=== PATIENT | female | born 1970 | race Caucasian/White ===

== ENCOUNTER → 2016-11-23 | Outpatient (CLI) | payer BC ==
--- NOTE | 2016-11-26 08:47 | MM ---
Reason for exam: screening (asymptomatic). Last mammogram was performed 1 year ago. History: Patient is nulliparous. Family history of breast cancer in paternal aunt and breast cancer in maternal aunt. Benign excisional biopsy of the right breast, February 12, 2001. Took hormonal contraceptives for 4 years. Taking progesterone for 2 years. Physical Findings: A clinical breast exam by your physician is recommended on an annual basis and results should be correlated with mammographic findings. MG Screening Mammo w CAD Bilateral CC and MLO view(s) were taken. XCCL view(s) were taken of the left breast. Prior study comparison: November 15, 2015, bilateral MG screening mammo w CAD. November 11, 2014, bilateral MG screening mammo w CAD. May 25, 2014, right breast MG diagnostic mammo RT w CAD. There are scattered fibroglandular densities. Finding: There are a few typically benign round, scattered calcifications in both breasts. There is no discrete abnormality. ASSESSMENT: Benign, BI-RAD 2 RECOMMENDATION: Routine screening mammogram of both breasts in 1 year.
== END | disposition home or self-care (01) ==
LOC: RADMAMWWP 09:22
PROVIDERS: ATTEND Obstetrics & Gynecology
DX: Z12.31 Encounter for screening mammogram for malignant neoplasm of breast (principal)

== ENCOUNTER → 2017-12-17 | Outpatient (CLI) | payer BC ==
--- NOTE | 2017-12-18 13:49 | MM ---
Reason for exam: screening (asymptomatic). Last mammogram was performed 1 year and 1 month ago. History: Patient is nulliparous. Family history of breast cancer in paternal aunt and breast cancer in maternal aunt. Benign excisional biopsy of the right breast, February 12, 2001. Took hormonal contraceptives for 4 years. Taking progesterone for 2 years. Physical Findings: A clinical breast exam by your physician is recommended on an annual basis and results should be correlated with mammographic findings. MG Screening Mammo w CAD Bilateral CC and MLO view(s) were taken. Prior study comparison: November 23, 2016, bilateral MG screening mammo w CAD. November 15, 2015, bilateral MG screening mammo w CAD. There are scattered fibroglandular densities. No significant changes when compared with prior studies. ASSESSMENT: Benign, BI-RAD 2 RECOMMENDATION: Routine screening mammogram of both breasts in 1 year.
== END | disposition home or self-care (01) ==
LOC: RADMAMWWP 10:22
PROVIDERS: ATTEND Obstetrics & Gynecology
DX: Z12.31 Encounter for screening mammogram for malignant neoplasm of breast (principal)
CPT/HCPCS: 77067

== ENCOUNTER → 2018-12-18 | Outpatient (CLI) | payer BC ==
--- NOTE | 2018-12-19 08:48 | MM ---
Reason for exam: screening (asymptomatic). Last mammogram was performed 1 year ago. History: Patient is nulliparous. Family history of breast cancer in paternal aunt and breast cancer in maternal aunt. Benign excisional biopsy of the right breast, February 12, 2001. Took hormonal contraceptives for 4 years. Taking progesterone for 2 years. Physical Findings: A clinical breast exam by your physician is recommended on an annual basis and results should be correlated with mammographic findings. MG Screening Mammo w CAD Bilateral CC and MLO view(s) were taken. Prior study comparison: December 17, 2017, bilateral MG screening mammo w CAD. November 23, 2016, bilateral MG screening mammo w CAD. There are scattered fibroglandular densities. There is no discrete abnormality. No significant changes when compared with prior studies. ASSESSMENT: Negative, BI-RAD 1 RECOMMENDATION: Routine screening mammogram of both breasts in 1 year.
== END | disposition home or self-care (01) ==
LOC: RADMAMWWP 13:20
PROVIDERS: ATTEND Obstetrics & Gynecology
DX: Z12.31 Encounter for screening mammogram for malignant neoplasm of breast (principal)
CPT/HCPCS: 77067

== ENCOUNTER → 2020-01-29 | Outpatient (CLI) | payer BC ==
--- NOTE | 2020-02-02 08:24 | MM ---
Reason for exam: screening (asymptomatic). Last mammogram was performed 1 year and 1 month ago. History: Patient is nulliparous. Family history of breast cancer in paternal aunt and breast cancer in maternal aunt. Benign excisional biopsy of the right breast, February 12, 2001. Took hormonal contraceptives for 4 years. Taking progesterone for 2 years. Physical Findings: A clinical breast exam by your physician is recommended on an annual basis and results should be correlated with mammographic findings. MG Screening Mammo w CAD Bilateral CC and MLO view(s) were taken. Prior study comparison: December 18, 2018, bilateral MG screening mammo w CAD. December 17, 2017, bilateral MG screening mammo w CAD. There are scattered fibroglandular densities. There is no discrete abnormality. No significant changes when compared with prior studies. ASSESSMENT: Negative, BI-RAD 1 RECOMMENDATION: Routine screening mammogram of both breasts in 1 year.
== END | disposition home or self-care (01) ==
LOC: RADMAMWWP 10:29
PROVIDERS: ATTEND Obstetrics & Gynecology
DX: Z12.31 Encounter for screening mammogram for malignant neoplasm of breast (principal)
CPT/HCPCS: 77067

== ENCOUNTER → 2021-01-30 | Outpatient (CLI) | payer BC ==
--- NOTE | 2021-02-02 10:50 | MM ---
Reason for exam: screening (asymptomatic). Last mammogram was performed 1 year ago. History: Patient is nulliparous. Family history of breast cancer in paternal aunt, breast cancer in grandmother, and breast cancer in maternal aunt. Benign excisional biopsy of the right breast, February 12, 2001. Took hormonal contraceptives for 4 years. Took progesterone for 2 years. Physical Findings: A clinical breast exam by your physician is recommended on an annual basis and results should be correlated with mammographic findings. MG Screening Mammo w CAD Bilateral CC and MLO view(s) were taken. Prior study comparison: January 29, 2020, bilateral MG screening mammo w CAD. December 18, 2018, bilateral MG screening mammo w CAD. There are scattered fibroglandular densities. There are benign appearing round calcifications bilaterally. There is no discrete abnormality. ASSESSMENT: Benign, BI-RAD 2 RECOMMENDATION: Routine screening mammogram of both breasts in 1 year.
== END | disposition home or self-care (01) ==
LOC: RADMAMWWP 12:33
PROVIDERS: ATTEND Obstetrics & Gynecology
DX: Z12.31 Encounter for screening mammogram for malignant neoplasm of breast (principal); Z80.3 Family history of malignant neoplasm of breast
CPT/HCPCS: 77067

== ENCOUNTER 2021-12-07 06:35 | Day surgery (SDC) | payer BC ==
[2021-12-05 11:47] VITALS: BMI 39.1
[~2021-12-07 06:35] MED LIST: LACTATED RINGERS 1,000 ML IV SCH
[2021-12-07 07:09] VITALS: RESP 16; TEMP 97.6
[2021-12-07 07:24] LABS: Glucose,Whole Blood 100 mg/dL (75-99)
[2021-12-07] MEDS ORDERED: PROPOFOL 10 MG/ML 20 ML VIAL IV ONE (07:57)
[2021-12-07] MEDS ORDERED: MIDAZOLAM 2 MG/2 ML VIAL ONE (07:57)
[2021-12-07] MEDS ORDERED: fentaNYL (PF) 50 MCG/ML 2 ML AMP ONE (07:57)
--- NOTE | 2021-12-07 08:16 | P.GSHP ---
History of Present Illness H&P Date: 12/07/21 Chief Complaint: Screening colonoscopy This 51-year-old female presents today for screening colonoscopy. Patient denies any significant GI complaints. Past Medical History Past Medical History: Diabetes Mellitus, Hyperlipidemia, Thyroid Disorder Additional Past Medical History / Comment(s): Hx frequent UTI's. Hemorrhoids. History of Any Multi-Drug Resistant Organisms: None Reported Past Surgical History: Breast Surgery, Cholecystectomy, Orthopedic Surgery Additional Past Surgical History / Comment(s): Colonoscopy, right breast b iopsy/milk duct removed, arthroscopic left knee surgery X2. Past Anesthesia/Blood Transfusion Reactions: No Reported Reaction Past Psychological History: No Psychological Hx Reported Smoking Status: Never smoker Past Alcohol Use History: None Reported Past Drug Use History: None Reported - Past Family History Mother Family Medical History: No Reported History Medications and Allergies Home Medications Medication Instructions Recorded Confirmed Type Atorvastatin [Lipitor] 10 mg PO HS 12/05/21 12/07/21 History Cetirizine HCl [Zyrtec] 5 mg PO DAILY 12/05/21 12/07/21 History Cholecalciferol [Vitamin D3 (25 50 mcg PO DAILY 12/05/21 12/05/21 History Mcg = 1000 Iu)] Cranberry (Unknown Dose) 1 tab PO DAILY 12/05/21 12/05/21 History Empagliflozin [Jardiance] 10 mg PO DAILY 12/05/21 12/07/21 History Fiber + B Vitamins 1 tab PO DAILY 12/05/21 12/05/21 History Levothyroxine Sodium 150 mcg PO 0500 12/05/21 12/07/21 History Multivit with Calcium,Iron,Min 1 each PO DAILY 12/05/21 12/05/21 History [Women's Multivitamin] Potassium Gluconate [Potassium 99 mg PO DAILY 12/05/21 12/05/21 History Gluconate ER] metFORMIN HCL ER [Glucophage XR] 1,000 mg PO BID 12/05/21 12/07/21 History Allergies Allergy/AdvReac Type Severity Reaction Status Date / Time No Known Allergies Allergy Verified 12/07/21 07:20 Surgical - Exam Vital Signs Temp Pulse Resp BP Pulse Ox 97.6 F 107 H 16 155/93 96 12/07/21 07:04 12/07/21 07:04 12/07/21 07:04 12/07/21 07:04 12/07/21 07:04 - General well developed, well nourished, no distress - Eyes PERRL - ENT normal pinna - Neck no masses - Respiratory normal expansion - Cardiovascular Rhythm: regular - Abdomen Abdomen: soft, non tender Results - Labs Abnormal Lab Results - Last 24 Hours (Table) 12/07/21 Range/Units 07:19 POC Glucose (mg/dL) 100 H (75-99) mg/dL Assessment and Plan Assessment: We'll perform screening colonoscopy
--- NOTE | 2021-12-07 08:18 | P.OP ---
Date of Procedure: 12/07/21 Preoperative Diagnosis: Screening colonoscopy Postoperative Diagnosis: Sigmoid colon polyp, Diverticulosis Procedure(s) Performed: Colonoscopy Anesthesia: MAC Surgeon: Lenny Chaney Pathology: other (Sigmoid colon polyp) Condition: stable Disposition: PACU Description of Procedure: The patient's placed on the endoscopy table in the lateral position. She received IV sedation. The digital rectal exam was performed which revealed a few internal/external hemorrhoids. The flexible colonoscope was then placed patient anus passed throughout the entire colon. The ileocecal valve was visualized. The cecum, ascending and transverse colon appeared normal. In the descending and; there is mild diverticulosis. In the sigmoid colon there was a small hyperplastic polyps is removed with the cold forcep. Scope was brought back the rectum and this appeared normal. Scope withdrawn for patient.
[2021-12-07 08:31] VITALS: BP 109/76; PULSE 81
== END 2021-12-07 08:46 | disposition home or self-care (01) ==
LOC: ORWHC2ENDO 06:35
PROVIDERS: ATTEND Surgery
DX: Z12.11 Encounter for screening for malignant neoplasm of colon (principal); K63.5 Polyp of colon; E11.9 Type 2 diabetes mellitus without complications; E07.9 Disorder of thyroid, unspecified; E78.5 Hyperlipidemia, unspecified; Z87.19 Personal history of other diseases of the digestive system; Z87.440 Personal history of urinary (tract) infections; Z90.49 Acquired absence of other specified parts of digestive tract
CPT/HCPCS: 45380; 88305; J2250; J3010; J2704

== ENCOUNTER → 2022-02-01 | Outpatient (CLI) | payer BC ==
--- NOTE | 2022-02-02 07:52 | MM ---
Reason for Exam: Screening (asymptomatic). Last screening mammogram was performed 12 month(s) ago. Patient History: Menarche at age 17. Patient has no children. Patient used Progesterone for 2 years. Patient used Hormonal Contraceptives for 4 years. 02/12/2001, Benign Excisional Biopsy on the right side. Maternal grandmother had breast cancer. Paternal aunt had breast cancer. Maternal aunt had breast cancer. Last menstrual period: 05/29/2019 Risk Values: Diana 5 year model risk: 1.2%. NCI Lifetime model risk: 10.6%. Prior Study Comparison: 12/18/2018 Bilateral Screening Mammogram, [facility]. 01/29/2020 Bilateral Screening Mammogram, [facility]. 01/30/2021 Bilateral Screening Mammogram, [facility]. Tissue Density: There are scattered fibroglandular densities. Findings: Analyzed By CAD. There is occasional scattered small benign-appearing round calcifications bilaterally redemonstrated. New group of indistinct calcifications in the central breast middle depth over 3 mm segment warrants further workup outer aspect. Overall Assessment: Incomplete: need additional imaging evaluation, BI-RAD 0 Management: Special View Mammogram of the right breast. Return for additional spot magnification views and true lateral view right breast. Electronically signed and approved by: Errol Cormier M.D.
== END | disposition home or self-care (01) ==
LOC: RADMAMWWP 08:15
PROVIDERS: ATTEND Obstetrics & Gynecology
DX: Z12.31 Encounter for screening mammogram for malignant neoplasm of breast (principal); R92.1 Mammographic calcification found on diagnostic imaging of breast; Z80.3 Family history of malignant neoplasm of breast
CPT/HCPCS: 77067

== ENCOUNTER → 2022-02-08 | Outpatient (CLI) | payer BC ==
--- NOTE | 2022-02-08 14:47 | MM ---
Reason for Exam: Additional evaluation requested from abnormal screening. Last screening mammogram was performed less than 1 month ago. Patient History: Menarche at age 17. Patient has no children. Patient used Progesterone for 2 years. Patient used Hormonal Contraceptives for 4 years. 02/12/2001, Benign Excisional Biopsy on the right side. Maternal grandmother had breast cancer, age 50. Paternal aunt had breast cancer, age 50. Maternal aunt had breast cancer, age 50. Risk Values: Diana 5 year model risk: 1.2%. NCI Lifetime model risk: 10.6%. Prior Study Comparison: 11/15/2015 Bilateral Screening Mammogram, [facility]. 01/29/2020 Bilateral Screening Mammogram, [facility]. 01/30/2021 Bilateral Screening Mammogram, [facility]. 02/01/2022 Bilateral MG screening mammo w CAD, [facility]. Tissue Density: Right: The breast tissue is heterogeneously dense. This may lower the sensitivity of mammography. Findings: Analyzed By CAD. 2 clustered groups of calcifications are seen on the right cc view and motion is noted on the left ML view. Six-month follow-up mammography is advised. Overall Assessment: Probably benign, BI-RAD 3 Management: Diagnostic Mammogram of the right breast in 6 months. A clinical breast exam by your physician is recommended on an annual basis and results should be correlated with mammographic findings. This exam should not preclude additional follow-up of suspicious palpable abnormalities. Results were given to the patient verbally at the time of exam. Electronically signed and approved by: Nathan Shanks M.D. Radiologis
== END | disposition home or self-care (01) ==
LOC: RADMAMWWP 10:00
PROVIDERS: ATTEND Obstetrics & Gynecology
DX: R92.8 Other abnormal and inconclusive findings on diagnostic imaging of breast (principal); Z80.3 Family history of malignant neoplasm of breast
CPT/HCPCS: 77061; 77065

== ENCOUNTER → 2022-08-13 | Outpatient (CLI) | payer BC ==
--- NOTE | 2022-08-13 10:24 | MM ---
Reason for Exam: Follow-up at short interval from prior study. Last screening mammogram was performed 6 month(s) ago. Patient History: Menarche at age 17. Patient has no children. Postmenopausal. Patient used Progesterone for 2 years. Patient used Hormonal Contraceptives for 4 years. 02/12/2001, Benign Excisional Biopsy on the right side. Maternal grandmother had breast cancer, age 50. Paternal aunt had breast cancer, age 50. Maternal aunt had breast cancer, age 50. Risk Values: Diana 5 year model risk: 1.2%. NCI Lifetime model risk: 10.4%. Prior Study Comparison: 01/30/2021 Bilateral Screening Mammogram, [facility]. 02/01/2022 Bilateral MG screening mammo w CAD, [facility]. 02/08/2022 Right MG 3D work up w/cad RT, [facility]. Tissue Density: Right: There are scattered fibroglandular densities. Findings: Analyzed By CAD. Stable group of punctate calcifications seen on the right breast in the upper outer quadrant at middle depth. No new suspicious mass. Overall Assessment: Probably benign, BI-RAD 3 Management: Diagnostic Mammogram of both breasts in 6 months. A clinical breast exam by your physician is recommended on an annual basis and results should be correlated with mammographic findings. This exam should not preclude additional follow-up of suspicious palpable abnormalities. Results were given to the patient verbally at the time of exam. Electronically signed and approved by: Anthony Foreman D.O.
== END | disposition home or self-care (01) ==
LOC: RADMAMWWP 09:57
PROVIDERS: ATTEND Obstetrics & Gynecology
DX: R92.8 Other abnormal and inconclusive findings on diagnostic imaging of breast (principal); Z78.0 Asymptomatic menopausal state; Z80.3 Family history of malignant neoplasm of breast
CPT/HCPCS: 77061; 77065

== ENCOUNTER → 2023-02-11 | Outpatient (CLI) | payer BC ==
--- NOTE | 2023-02-11 09:54 | MM ---
Reason for Exam: Follow-up at short interval from prior study. Last screening mammogram was performed 12 month(s) ago. Patient History: Menarche at age 17. Patient has no children. Postmenopausal. Patient used Progesterone for 2 years. Patient used Hormonal Contraceptives for 4 years. 02/12/2001, Benign Excisional Biopsy on the right side. Maternal grandmother had breast cancer, age 50. Paternal aunt had breast cancer, age 50. Maternal aunt had breast cancer, age 50. Risk Values: Diana 5 year model risk: 1.2%. NCI Lifetime model risk: 10.4%. Prior Study Comparison: 11/23/2016 Bilateral Screening Mammogram, [facility]. 12/17/2017 Bilateral Screening Mammogram, [facility]. 12/18/2018 Bilateral Screening Mammogram, [facility]. 01/29/2020 Bilateral Screening Mammogram, [facility]. 01/30/2021 Bilateral Screening Mammogram, [facility]. 02/01/2022 Bilateral MG screening mammo w CAD, [facility]. 02/08/2022 Right MG 3D work up w/cad RT, [facility]. 08/13/2022 Right MG 3D diag mammo w/cad RT, [facility]. Tissue Density: The breast tissue is almost entirely fat. Findings: Analyzed By CAD. No new suspicious masses, calcifications or distortions. Overall Assessment: Negative, BI-RAD 1 Management: Screening Mammogram of both breasts in 1 year. Results were given to the patient verbally at the time of exam. Patient should continue monthly self-breast exams. A clinical breast exam by your physician is recommended on an annual basis. This exam should not preclude additional follow-up of suspicious palpable abnormalities. Note on Diana scores and lifetime risk: 1. A Diana score greater than 3% is considered moderate risk. If this is the case, consider specialist referral to assess eligibility for a risk reducing agent. 2. If overall lifetime risk for the development of breast cancer is 20% or higher, the patient may qualify for future screening with alternating mammogram and breast MRI. Electronically signed and approved by: Nikunj Norman DO
== END | disposition home or self-care (01) ==
LOC: RADMAMWWP 09:23
PROVIDERS: ATTEND Obstetrics & Gynecology
DX: R92.8 Other abnormal and inconclusive findings on diagnostic imaging of breast (principal); Z78.0 Asymptomatic menopausal state; Z80.3 Family history of malignant neoplasm of breast
CPT/HCPCS: 77062; 77066

== ENCOUNTER 2023-12-27 14:04 | Inpatient (IN) | payer BC ==
--- NOTE | 2023-12-27 14:21 | ED ---
General Adult HPI - General Chief complaint: Extremity Injury, Lower Stated complaint: Fall Time Seen by Provider: 12/27/23 14:07 Source: patient, EMS Mode of arrival: EMS Limitations: no limitations - History of Present Illness Initial comments: Dictation was produced using [employer]vector dictation software. please excuse any grammatical, word or spelling errors. Chief Complaint: 53-year-old female with past medical history of diabetes, dyslipidemia and thyroid disease presents to the emergency department for falls and knee pain History of Present Illness: Patient 53-year-old female she has no significant comorbidities. States that over the last several days she has had weakness that only seems to be apparent in the morning. States that this morning she fell twice landed on her knees. Denies any injury to her head or anywhere else in her body. She complains of bruises to her bilateral knees. Denies any cardiac issues. She states that she has not syncopized. She states that knees feel weak in the morning causing her to fall. The ROS documented in this emergency department record has been reviewed and confirmed by me. Those systems with pertinent positive or negative responses have been documented in the HPI. All other systems are other negative and/or noncontributory. - Related Data Home Medications Medication Instructions Recorded Confirmed Atorvastatin [Lipitor] 10 mg PO HS 12/05/21 12/27/23 Empagliflozin [Jardiance] 10 mg PO W/BRKFST 12/05/21 12/27/23 Levothyroxine Sodium 150 mcg PO DAILY@0500 12/05/21 12/27/23 metFORMIN HCL ER [Glucophage XR] 1,000 mg PO BID 12/05/21 12/27/23 Allergies Allergy/AdvReac Type Severity Reaction Status Date / Time No Known Allergies Allergy Verified 12/27/23 14:54 Review of Systems ROS Statement: Those systems with pertinent positive or pertinent negative responses have been documented in the HPI. ROS Other: All systems not noted in ROS Statement are negative. Past Medical History Past Medical History: Diabetes Mellitus, Hyperlipidemia, Thyroid Disorder Additional Past Medical History / Comment(s): Hx frequent UTI's. Hemorrhoids. History of Any Multi-Drug Resistant Organisms: None Reported Past Surgical History: Breast Surgery, Cholecystectomy, Orthopedic Surgery Additional Past Surgical History / Comment(s): Colonoscopy, right breast biopsy/milk duct removed, arthroscopic left knee surgery X2. Past Anesthesia/Blood Transfusion Reactions: No Reported Reaction Past Psychological History: No Psychological Hx Reported Smoking Status: Never smoker Past Alcohol Use History: None Reported Past Drug Use History: None Reported - Past Family History Mother Family Medical History: No Reported History General Exam - General Exam Comments Initial Comments: PHYSICAL EXAM: General Impression: Alert and oriented x3, not in acute distress HEENT: Normocephalic atraumatic, extra-ocular movements intact, pupils equal and reactive to light bilaterally, mucous membranes moist. Cardiovascular: Heart regular rate and rhythm Chest: Able to complete full sentences, no retractions, no tachypnea Abdomen: abdomen soft, non-tender, non-distended, no organomegaly Musculoskeletal: Pulses present and equal in all extremities, no peripheral edema, bruises to the bilateral knees, passive and active range of motion intact lower extremity joints Motor: no focal deficits noted Neurological: CN II-XII grossly intact, no focal motor or sensory deficits noted Skin: Intact with no visualized rashes Psych: Normal affect and mood Limitations: no limitations Course Vital Signs 12/27/23 14:14 Temperature 97.9 F Pulse Rate 105 H Respiratory 18 Rate Blood Pressure 158/100 O2 Sat by Pulse 98 Oximetry EKG Findings - EKG Comments: EKG Findings:: My EKG interpretation: Ventricular rate 90, sinus rhythm,. 176, QRS 114, QTc 293. No OK prolongation, no QTC prolongation, no ST or T-wave changes noted. No EKG for comparison. Isolated ST elevation in V2. No other abnormalities noted. Overall this EKG is nonspecific. Medical Decision Making - Medical Decision Making Was pt. sent in by a medical professional or institution (, PA, BATH TESTER, urgent care, hospital, or snf...) When possible be specific @ -No Did you speak to anyone other than the patient for history (EMS, parent, family, police, friend...)? What history was obtained from this source @ -No Did you review nursing and triage notes (agree or disagree)? Why? @ -I reviewed and agree with nursing and triage notes Were old charts reviewed (outside hosp., previous admission, EMS record, old EKG, old radiological studies, urgent care reports/EKG's, snf records)? Report findings @ -No old charts were reviewed Differential Diagnosis (chest pain, altered mental status, abdominal pain women, abdominal pain men, vaginal bleeding, musculoskeletal, weakness, fever, dyspnea, syncope, headache, dizziness, GI bleed, back pain, seizure, CVA, palpatations, mental health)? @ -Differential Musculoskeletal: Muscular strain, contusion, ligament sprain, fracture, arthritis, septic arthritis, bursitis, cellulitis, muscle spasm, nerve compression, DVT, arterial occlusion, herpes zoster, electrolyte abnormality, tumor.... This is not meant to be in all inclusive list EKG interpreted by me (3pts min.). @ -None done X-rays interpreted by me (1pt min.). @ -Bilateral knee x-ray shows no acute processes CT interpreted by me (1pt min.). @ -None done U/S interpreted by me (1pt. min.). @ -None done What testing was considered but not performed or refused? (CT, X-rays, U/S, labs)? Why? @ -None What meds were considered but not given or refused? Why? @ -None Did you discuss the management of the patient with other professionals (professionals i.e. , PA, BATH TESTER, lab, RT, psych nurse, psych social worker, internet marketing assistant, teacher, chief information officer, home health care case manager)? Give summary @ -Case discussed with hospitalist for admission Was smoking cessation discussed for >3mins.? @ -No Was critical care preformed (if so, how long)? @ -No Were there social determinants of health that impacted care today? How? (Homelessness, low income, unemployed, alcoholism, drug addiction, transportation, low edu. Level, literacy, decrease access to med. care, custodial, rehab)? @ -No Was there de-escalation of care discussed even if they declined (Discuss DNR or withdrawal of care, Hospice)? DNR status @ -No What co-morbidities impacted this encounter? (DM, HTN, Smoking, COPD, CAD, Cancer, CVA, ARF, Chemo, Hep., AIDS, mental health diagnosis, sleep apnea, morbid obesity)? @ -None Was patient admitted / discharged? Hospital course, mention meds given and route, prescriptions, significant lab abnormalities, going to OR and other pertinent info. @ -53-year-old female presents emergency department for frequent falls. Vital signs upon arrival are within acceptable limits she has bruises on her knees. Otherwise patient has no acute distress. Laboratory evaluation obtained. Incidental finding of hypercalcemia of 13.9. Patient given IV fluids. Patient will be admitted for further care. Undiagnosed new problem with uncertain prognosis? @ -No Drug Therapy requiring intensive monitoring for toxicity (Heparin, Nitro, Insulin, Cardizem)? @ -No Were any procedures done? @ -No Diagnosis/symptom? Acute, or Chronic, or Acute on Chronic? Uncomplicated (without systemic symptoms) or Complicated (systemic symptoms)? @ -Hypercalcemia, no obvious source Side effects of treatment? @ -No Exacerbation, Progression, or Severe Exacerbation? @ -No Poses a threat to life or bodily function? How? (Chest pain, [place], ND, pneumonia, PE, COPD, DKA, ARF, appy, cholecystitis, CVA, Diverticulitis, Homicidal, Suicidal, threat to staff... and all critical care pts) @ -yes - Lab Data Result diagrams: 12/27/23 14:40 12/27/23 14:40 Lab Results 12/27/23 12/27/23 Range/Units 14:40 14:40 WBC 9.3 (3.8-10.6) k/uL RBC 4.15 (3.80-5.40) m/uL Hgb 11.0 L (11.4-16.0) gm/dL Hct 33.5 L (34.0-46.0) % MCV 80.8 (80.0-100.0) fL MCH 26.4 (25.0-35.0) pg MCHC 32.7 (31.0-37.0) g/dL RDW 16.4 H (11.5-15.5) % Plt Count 239 (150-450) k/uL MPV 8.2 Neutrophils % 68 % Lymphocytes % 19 % Monocytes % 6 % Eosinophils % 4 % Basophils % 1 % Neutrophils # 6.4 (1.3-7.7) k/uL Lymphocytes # 1.8 (1.0-4.8) k/uL Monocytes # 0.6 (0-1.0) k/uL Eosinophils # 0.4 (0-0.7) k/uL Basophils # 0.1 (0-0.2) k/uL Anisocytosis Slight Sodium 140 (137-145) mmol/L Potassium 3.0 L (3.5-5.1) mmol/L Chloride 103 (98-107) mmol/L Carbon Dioxide 26 (22-30) mmol/L Anion Gap 11 mmol/L BUN 12 (7-17) mg/dL Creatinine 1.16 H (0.52-1.04) mg/dL Est GFR (CKD-EPI)AfAm 63 (>60 ml/min/1.73 sqM) Est GFR (CKD-EPI)NonAf 55 (>60 ml/min/1.73 sqM) Glucose 112 H (74-99) mg/dL Calcium 13.9 H* (8.4-10.2) mg/dL Disposition Clinical Impression: Hypercalcemia Disposition: ADMITTED IP TO THIS HOSP Condition: Fair Referrals: Dwaine Barraza DO [Primary Care Provider] - 1-2 days Decision Time: 17:50
[2023-12-27 14:44] LABS: Anisocytosis Slight; Basophils # (A) 0.1 k/uL (0-0.2); Basophils % (A) 1 %; Eosinophils # (A) 0.4 k/uL (0-0.7); Eosinophils % (A) 4 %; HCT 33.5 % (34.0-46.0); Lymphocytes # (A) 1.8 k/uL (1.0-4.8); Lymphocytes % (A) 19 %; MCH 26.4 pg (25.0-35.0); MCHC 32.7 g/dL (31.0-37.0); MCV 80.8 fL (80.0-100.0); Mean Platelet Volume 8.2; Monocytes # (A) 0.6 k/uL (0-1.0); Monocytes % (A) 6 %; Neutrophils # (A) 6.4 k/uL (1.3-7.7); Neutrophils % (A) 68 %; Platelet Count 239 k/uL (150-450); RBC 4.15 m/uL (3.80-5.40); RDW 16.4 % (11.5-15.5); WBC 9.3 k/uL (3.8-10.6)
[2023-12-27 14:59] LABS: African American GFR (CKD) 63 (>60 ml/min/1.73 sqM); Anion Gap 11 mmol/L; Blood Urea Nitrogen 12 mg/dL (7-17); Carbon Dioxide 26 mmol/L (22-30); Chloride 103 mmol/L (98-107); Glucose 112 mg/dL (74-99); Non-African American GFR(CKD) 55 (>60 ml/min/1.73 sqM); Sodium 140 mmol/L (137-145)
[2023-12-27 15:07] LABS: Calcium 13.9 mg/dL (8.4-10.2)
--- NOTE | 2023-12-27 16:15 | XR ---
EXAMINATION TYPE: XR knee complete bilateral DATE OF EXAM: 12/27/2023 COMPARISON: None HISTORY: Pain TECHNIQUE: Bilateral knees 3 views each FINDINGS: Right knee: Medial and lateral femoral condylar spurring and medial tibial plateau spurring is presen t. There is mild narrowing of the joint spaces. Some calcification may be within the anterior joint s pace. No joint effusion is evident. No acute fractures identified. Left knee: Mild medial and lateral femoral condylar and tibial plateau spurs are present. There is na rrowing of the medial lateral compartment joint spaces. No joint effusion is evident. Large superior patellar spur is present. Posterior joint space calcification may be present. Acute fractures identif ied. IMPRESSION: 1. No acute osseous abnormalities bilateral knees. 2. Narrowing of the medial and lateral compartment joint spaces patible with moderate degenerative c hanges
[2023-12-27] MEDS: SODIUM CHLORIDE 0.9% 1,000 ML IV STA (16:41)
[2023-12-27] MEDS ORDERED: NALOXONE 0.4 MG/ML 1 ML VIAL IV PRN (17:47)
[2023-12-27] MEDS: SODIUM CHLORIDE 0.9% 1,000 ML IV SCH (18:44)
[2023-12-27] MEDS ORDERED: DEXTROSE 50% SYRINGE 50 ML IVP PRN ×2 (21:55)
[2023-12-27 22:14] LABS: Glucose,Whole Blood 113 mg/dL (70-110)
[2023-12-27] MEDS: hydrALAZINE HCL 20 MG/ML 1 ML VIAL IVP PRN (22:57)
[2023-12-28] MEDS: LEVOTHYROXINE 75 MCG TAB PO SCH (05:24)
[2023-12-28 07:18] LABS: Glucose,Whole Blood 81 mg/dL (70-110)
[2023-12-28] MEDS: INSULIN ASPART (NovoLOG) 100 UNIT/ML VIAL SQ SCH (07:44)
[2023-12-28] MEDS: ATORVASTATIN 10 MG TAB PO SCH ×2 (09:19→19:38)
[2023-12-28] MEDS ORDERED: Potassium Replacement Protocol 1 EACH MISC MISCELLANE PRN (10:02)
--- NOTE | 2023-12-28 10:12 | P.HPIM ---
History of Present Illness 53-year-old pleasant female came in with complaints of fall and mechanical fall and bruises on the knee. Patient is found to have osteoarthritis of the knee. Patient is admitted for workup for hypercalcemia patient has elevated calcium up to 13. Patient is up-to-date with her breast cancer screening and patient had a colonoscopy in 2013 and supposed to get colonoscopy next year. Patient did have an unintentional weight loss of 5 pounds in 1 and half months. Patient denies any fever chills nausea vomiting abdominal patient patient has minimally elevated creatinine of 1.2. Patient denies any diarrhea patient is not on any m edications that can cause hypercalcemia. REVIEW OF SYSTEMS: CONSTITUTIONAL: No fever, no malaise, no fatigue. HEENT: No recent visual problems or hearing problems. Denied any sore throat. CARDIOVASCULAR: No chest pain, orthopnea, PND, no palpitations, no syncope. PULMONARY: No shortness of breath, no cough, no hemoptysis. GASTROINTESTINAL: No diarrhea, no nausea, no vomiting, no abdominal pain. NEUROLOGICAL: No headaches, no weakness, no numbness. HEMATOLOGICAL: Denies any bleeding or petechiae. GENITOURINARY: Denies any burning micturition, frequency, or urgency. MUSCULOSKELETAL/RHEUMATOLOGICAL: Denies any joint pain, swelling, or any muscle pain. ENDOCRINE: Denies any polyuria or polydipsia. The rest of the 14-point review of systems is negative. PHYSICAL EXAMINATION: GENERAL: The patient is alert and oriented x3, not in any acute distress. Well developed, well nourished. HEENT: Pupils are round and equally reacting to light. EOMI. No scleral icterus. No conjunctival pallor. Normocephalic, atraumatic. No pharyngeal erythema. No thyromegaly. CARDIOVASCULAR: S1 and S2 present. No murmurs, rubs, or gallops. PULMONARY: Chest is clear to auscultation, no wheezing or crackles. ABDOMEN: Soft, nontender, nondistended, normoactive bowel sounds. No palpable organomegaly. MUSCULOSKELETAL: No joint swelling or deformity. EXTREMITIES: No cyanosis, clubbing, or pedal edema. NEUROLOGICAL: Gross neurological examination did not reveal any focal deficits. SKIN: Bruises on bilateral knees Assessment and plan -Hypercalcemia: Will order PTH, serum calcium levels. Nephrology will be consulted continue with IV fluids will increase the fluid rate to 100 cc/h monitor electrolytes. -Fall generalized weakness physical therapy Occupational Therapy evaluation there is no evidence of fractures -Type 2 diabetes mellitus -Hypertension -Hyperlipidemia Above-mentioned chronic medical problems patient will be started on appropriate home medications DVT prophylaxis: Subcutaneous heparin Past Medical History Past Medical History: Diabetes Mellitus, Hyperlipidemia, Thyroid Disorder Additional Past Medical History / Comment(s): Hx frequent UTI's. Hemorrhoids. History of Any Multi-Drug Resistant Organisms: None Reported Past Surgical History: Breast Surgery, Cholecystectomy, Orthopedic Surgery Additional Past Surgical History / Comment(s): Colonoscopy, right breast biopsy/milk duct removed, arthroscopic left knee surgery X2. Past Anesthesia/Blood Transfusion Reactions: No Reported Reaction Past Psychological History: No Psychological Hx Reported Smoking Status: Never smoker Past Alcohol Use History: None Reported Past Drug Use History: None Reported - Past Family History Mother Family Medical History: No Reported History Medications and Allergies Home Medications Medication Instructions Recorded Confirmed Type Atorvastatin [Lipitor] 10 mg PO HS 12/05/21 12/27/23 History Empagliflozin [Jardiance] 10 mg PO W/BRKFST 12/05/21 12/27/23 History Levothyroxine Sodium 150 mcg PO DAILY@0500 12/05/21 12/27/23 History metFORMIN HCL ER [Glucophage XR] 1,000 mg PO BID 12/05/21 12/27/23 History Allergies Allergy/AdvReac Type Severity Reaction Status Date / Time No Known Allergies Allergy Verified 12/27/23 14:54 Physical Exam Vitals: Vital Signs Temp Pulse Pulse Resp BP BP Pulse Ox 12/28/23 07:34 98.9 F 93 19 147/84 98 12/28/23 00:38 166/96 12/28/23 00:19 98.7 F 104 H 16 172/94 97 12/27/23 23:35 96 18 144/92 99 12/27/23 23:18 99 18 164/82 95 12/27/23 22:58 170/93 12/27/23 21:52 101 H 18 170/96 97 12/27/23 20:56 100 18 192/107 96 12/27/23 20:00 100 20 184/105 97 12/27/23 14:14 97.9 F 105 H 18 158/100 98 Intake and Output 12/27/23 12/28/23 12/28/23 22:59 06:59 14:59 Intake Total 1100 Balance 1100 Intake: Intake, IV Titration 600 Amount Sodium Chloride 0.9% 1, 600 000 ml @ 75 mls/hr IV . [id number] Rx#:[id number] Oral 500 Other: Voiding Method Diaper External Catheter # Voids 2 2 # Bowel Movements 1 Weight 100.244 kg Results CBC & Chem 7: 12/27/23 14:40 12/27/23 14:40 Labs: Abnormal Lab Results - Last 24 Hours (Table) 12/27/23 12/27/23 12/27/23 Range/Units 14:40 14:40 22:13 Hgb 11.0 L (11.4-16.0) gm/dL Hct 33.5 L (34.0-46.0) % RDW 16.4 H (11.5-15.5) % Potassium 3.0 L (3.5-5.1) mmol/L Creatinine 1.16 H (0.52-1.04) mg/dL Glucose 112 H (74-99) mg/dL POC Glucose (mg/dL) 113 H (70-110) mg/dL Calcium 13.9 H* (8.4-10.2) mg/dL Thrombosis Risk Factor Assmnt - Choose All That Apply Any of the Below Risk Factors Present?: Yes Each Factor Represents 1 point: Age 41-60 years, Obesity (BMI >25) Other Risk Factors: No Other congenital or acquired thrombophilia - If yes, enter type in comment: No Thrombosis Risk Factor Assessment Total Risk Factor Score: 2 Thrombosis Risk Factor Assessment Level: Low Risk
[2023-12-28 10:53] LABS: African American GFR (CKD) 62 (>60 ml/min/1.73 sqM); Anion Gap 9 mmol/L; Blood Urea Nitrogen 11 mg/dL (7-17); Calcium 12.3 mg/dL (8.4-10.2); Carbon Dioxide 27 mmol/L (22-30); Chloride 105 mmol/L (98-107); Glucose 134 mg/dL (74-99); Magnesium 1.1 mg/dL (1.6-2.3); Non-African American GFR(CKD) 54 (>60 ml/min/1.73 sqM); Sodium 141 mmol/L (137-145)
[2023-12-28 10:58] LABS: Potassium 2.4 mmol/L (3.5-5.1)
[2023-12-28] MEDS: ENOXAPARIN 40 MG/0.4 ML SYRINGE SQ SCH (11:04)
[2023-12-28] MEDS: POTASSIUM CHLORIDE ER 20 MEQ TAB.ER PO SCH ×2 (11:04→19:39)
[2023-12-28] MEDS: ACETAMINOPHEN TAB 325 MG TAB PO PRN (11:04)
[2023-12-28 11:57] LABS: Glucose,Whole Blood 93 mg/dL (70-110)
--- NOTE | 2023-12-28 13:14 | P.NPCON ---
History of Present Illness - History of Present Illness patient is a 53-year-old female who was admitted to the hospital after a fall. Patient states that she tripped and fell on both knees with subsequent bruising. In the ER patient was noted to have an elevated calcium of 13.9. no prior history of hypercalcemia. Patient denies any significant use of Tums or calcium supplements. She does take vitamin D supplement daily. Serum creatinine at 1.1 mg/dL. no history of sarcoidosis. Review of Systems as per HPI Past Medical History Past Medical History: Diabetes Mellitus, Hyperlipidemia, Thyroid Disorder Additional Past Medical History / Comment(s): Hx frequent UTI's. Hemorrhoids. History of Any Multi-Drug Resistant Organisms: None Reported Past Surgical History: Breast Surgery, Cholecystectomy, Orthopedic Surgery Additional Past Surgical History / Comment(s): Colonoscopy, right breast biopsy/milk duct removed, arthroscopic left knee surgery X2. Past Anesthesia/Blood Transfusion Reactions: No Reported Reaction Past Psychological History: No Psychological Hx Reported Smoking Status: Never smoker Past Alcohol Use History: None Reported Past Drug Use History: None Reported - Past Family History Mother Family Medical History: No Reported History Medications and Allergies Home Medications Medication Instructions Recorded Confirmed Type Atorvastatin [Lipitor] 10 mg PO HS 12/05/21 12/27/23 History Empagliflozin [Jardiance] 10 mg PO W/BRKFST 12/05/21 12/27/23 History Levothyroxine Sodium 150 mcg PO DAILY@0500 12/05/21 12/27/23 History metFORMIN HCL ER [Glucophage XR] 1,000 mg PO BID 12/05/21 12/27/23 History Allergies Allergy/AdvReac Type Severity Reaction Status Date / Time No Known Allergies Allergy Verified 12/27/23 14:54 Physical Exam Vitals: Vital Signs Temp Pulse Pulse Resp BP BP Pulse Ox 12/28/23 07:34 98.9 F 93 19 147/84 98 12/28/23 00:38 166/96 12/28/23 00:19 98.7 F 104 H 16 172/94 97 12/27/23 23:35 96 18 144/92 99 12/27/23 23:18 99 18 164/82 95 12/27/23 22:58 170/93 12/27/23 21:52 101 H 18 170/96 97 12/27/23 20:56 100 18 192/107 96 12/27/23 20:00 100 20 184/105 97 12/27/23 14:14 97.9 F 105 H 18 158/100 98 Intake and Output 12/27/23 12/28/23 12/28/23 22:59 06:59 14:59 Intake Total 1100 Balance 1100 Intake: Intake, IV Titration 600 Amount Sodium Chloride 0.9% 1, 600 000 ml @ 75 mls/hr IV . [id number] [facility] Rx#:[id number] Oral 500 Other: Voiding Method Diaper External Catheter # Voids 2 2 # Bowel Movements 1 Weight 100.244 kg patient is awake, comfortable, no acute distress. Examination of the heart S1 and S2 Examination of the lungs bilateral breath sounds are heard Abdomen is soft nontender obese Examination of lower extremities shows bruising both knees, no edema noted BE[employer] RUNNER exam grossly intact Results - Lab Results Most recent lab results Calcium 12.3 mg/dL (8.4-10.2) H 12/28/23 10:18 Magnesium 1.1 mg/dL (1.6-2.3) L 12/28/23 10:18 12/27/23 14:40 12/28/23 10:18 Assessment and Plan Assessment: 1. Hypercalcemia rule out hyperparathyroidism. Workup is in progress. Check serum and urine immunofixation as well. Patient denies use of any calcium supplements. She does take vitamin D supplement daily. 2. Hypokalemia with elevated blood pressure. patient is not maintained on antihypertensive medications. No history of use of diuretics. she is maintained on jardiance which can cause hypokalemia. 3. Type 2 diabetes maintained on metformin and jardiance. 4. Status post fall with bilateral knee bruising Plan: add serum and urine immunofixation and Pillo level for workup of hypercalcemia. Continue with IV fluids. Check serum aldosterone level Thank you for the consultation. We will continue to follow the patient with you during her hospitalization.
[2023-12-28 17:05] LABS: Glucose,Whole Blood 126 mg/dL (70-110)
[2023-12-28] MEDS: NYSTATIN 100,000 UNIT/GM POWD 15 GM TOPICAL SCH (19:38)
[2023-12-28 20:29] LABS: Glucose,Whole Blood 115 mg/dL (70-110)
[2023-12-29] MEDS: POTASSIUM CHLORIDE ER 20 MEQ TAB.ER PO SCH ×3 (03:55→17:45)
[2023-12-29 07:30] LABS: Glucose,Whole Blood 101 mg/dL (70-110)
[2023-12-29 08:05] LABS: African American GFR (CKD) 68 (>60 ml/min/1.73 sqM); Anion Gap 7 mmol/L; Blood Urea Nitrogen 11 mg/dL (7-17); Calcium 11.5 mg/dL (8.4-10.2); Carbon Dioxide 25 mmol/L (22-30); Chloride 114 mmol/L (98-107); Glucose 101 mg/dL (74-99); Non-African American GFR(CKD) 59 (>60 ml/min/1.73 sqM); Potassium 3.3 mmol/L (3.5-5.1); Sodium 146 mmol/L (137-145)
--- NOTE | 2023-12-29 09:25 | XR ---
EXAMINATION TYPE: XR chest 2V DATE OF EXAM: 12/29/2023 COMPARISON: NONE HISTORY: Rule out sarcoidosis TECHNIQUE: Frontal and lateral views of the chest are obtained. FINDINGS: There is no focal air space opacity, pleural effusion, or pneumothorax seen. The cardiac silhouette size is within normal limits. The osseous structures are intact. IMPRESSION: No acute cardiopulmonary process.
[2023-12-29] MEDS ORDERED: Magnesium Replacement Protocol 1 EACH MISC MISCELLANE PRN (10:11)
[2023-12-29] MEDS: MAGNESIUM SULFATE-D5W PMX 1 GM in DEXTROSE/WATER 1 100ML.BAG IVPB SCH (10:30)
[2023-12-29 12:08] LABS: Glucose,Whole Blood 102 mg/dL (70-110)
[2023-12-29] MEDS: DEXTROSE 5% IN WATER 1,000 ML IV SCH (13:51)
[2023-12-29 17:26] LABS: Glucose,Whole Blood 127 mg/dL (70-110)
--- NOTE | 2023-12-29 17:54 | P.PN ---
Subjective Patient is seen for follow-up for hypercalcemia. PTH is noted to be appropriately low. Currently maintained on IV fluids. Serum calcium at 11.5 today. Patient has just returned from chest x-ray. Objective - Vital Signs Vital signs: Vital Signs Temp 98.6 F 12/29/23 13:48 Pulse 107 H 12/29/23 13:48 Resp 18 12/29/23 13:48 BP 167/100 12/29/23 13:48 Pulse Ox 99 12/29/23 13:48 FiO2 Intake & Output 12/28/23 12/29/23 12/29/23 18:59 06:59 18:59 Intake Total 1800 Balance 1800 Intake: Intake, IV Titration 1200 Amount Sodium Chloride 0.9% 1, 1200 000 ml @ 100 mls/hr IV . Q10H [facility] Rx#:[id number] Oral 600 Other: Voiding Method Bedside Commode Bedside Commode Diaper Diaper Incontinent # Voids 1 3 1 # Bowel Movements 1 - Exam patient is awake, comfortable, no acute distress. Examination of the heart S1 and S2 Examination of the lungs bilateral breath sounds are heard Abdomen is soft nontender obese Examination of lower extremities shows bruising both knees, no edema noted BRA[employer]ER RESISTANCE exam grossly intact - Labs CBC & Chem 7: 12/27/23 14:40 12/29/23 14:41 Labs: Abnormal Lab Results - Last 24 Hours (Table) 12/28/23 12/28/23 12/29/23 Range/Units 17:54 20:28 00:35 Sodium (137-145) mmol/L Potassium 2.8 L 2.8 L (3.5-5.1) mmol/L Chloride (98-107) mmol/L Creatinine (0.52-1.04) mg/dL Glucose (74-99) mg/dL POC Glucose (mg/dL) 115 H (70-110) mg/dL Calcium (8.4-10.2) mg/dL Magnesium (1.6-2.3) mg/dL 12/29/23 12/29/23 12/29/23 Range/Units 07:12 07:12 14:41 Sodium 146 H (137-145) mmol/L Potassium 3.3 L 3.4 L (3.5-5.1) mmol/L Chloride 114 H (98-107) mmol/L Creatinine 1.08 H (0.52-1.04) mg/dL Glucose 101 H (74-99) mg/dL POC Glucose (mg/dL) (70-110) mg/dL Calcium 11.5 H (8.4-10.2) mg/dL Magnesium 1.2 L (1.6-2.3) mg/dL 12/29/23 Range/Units 17:24 Sodium (137-145) mmol/L Potassium (3.5-5.1) mmol/L Chloride (98-107) mmol/L Creatinine (0.52-1.04) mg/dL Glucose (74-99) mg/dL POC Glucose (mg/dL) 127 H (70-110) mg/dL Calcium (8.4-10.2) mg/dL Magnesium (1.6-2.3) mg/dL Assessment and Plan Assessment: 1. Hypercalcemia with appropriately low PTH. Workup is in progress. Check serum and urine immunofixation as well. Patient denies use of any calcium supplements. She does take vitamin D supplement daily. 25-hydroxy Vitamin D level at 35 2. Hypokalemia with elevated blood pressure. Patient is not maintained on antihypertensive medications. No history of use of diuretics. she is maintained on jardiance which can be associated with hypokalemia. 3. Type 2 diabetes maintained on metformin and jardiance. 4. Status post fall with bilateral knee bruising Plan: Continue IV fluids Check chest x-ray Await further workup
--- NOTE | 2023-12-29 20:18 | P.PN ---
Subjective Progress Note Date: 12/29/23 53-year-old pleasant female came in with complaints of fall and mechanical fall and bruises on the knee. Patient is found to have osteoarthritis of the knee. Patient is admitted for workup for hypercalcemia patient has elevated calcium up to 13. Patient is up-to-date with her breast cancer screening and patient had a colonoscopy in 2013 and supposed to get colonoscopy next year. Patient did have an unintentional weight loss of 5 pounds in 1 and half months. Patient denies any fever chills nausea vomiting abdominal patient patient has minimally elevated creatinine of 1.2. Patient denies any diarrhea patient is not on any medications that can cause hypercalcemia. 12/29/2023 Patient is evaluated in follow up today sitting up in the chair. Bruising noted on the knees bilaterally, no hematoma or swelling noted. No acute events overnight. Does report some pain on the left chest under breast since falling, reproducible. Xray is negative for acute fractures and no acute cardiopulmonary process noted. Blood work today reveals sodium level 146, potassium 3.3, BUN 11, creatinine 1.08, glucose 120s, calcium 11.5, magnesium 1.2. Review of Systems Constitutional: Denied any fatigue denied any fever. Cardio vascular: denied any chest pain, palpitations Gastrointestinal: denied any nausea, vomiting, diarrhea Pulmonary: Denied any shortness of breath cough Neurologic denied any new focal deficits All inpatient medications were reviewed and appropriate changes in these medications as dictated in the interval history and assessment and plan. PHYSICAL EXAMINATION: GENERAL: The patient is alert and oriented x3, not in any acute distress. Well developed, well nourished. HEENT: Pupils are round and equally reacting to light. EOMI. No scleral icterus. No conjunctival pallor. Normocephalic, atraumatic. No pharyngeal erythema. No thyromegaly. CARDIOVASCULAR: S1 and S2 present. No murmurs, rubs, or gallops. PULMONARY: Chest is clear to auscultation, no wheezing or crackles. ABDOMEN: Soft, nontender, nondistended, normoactive bowel sounds. No palpable organomegaly. MUSCULOSKELETAL: No joint swelling or deformity. EXTREMITIES: No cyanosis, clubbing, or pedal edema. NEUROLOGICAL: Gross neurological examination did not reveal any focal deficits. SKIN: Bruises on bilateral knees Assessment and plan -Hypercalcemia: PTH appropriately low, calcium levels trending down. Further work up pending, nephrology following. -Hypernatremia fluids changed to D5 water. -Fall generalized weakness physical therapy Occupational Therapy evaluation there is no evidence of fractures -Hypokalemia/hypomagnesemia will be supplemented and repeat blood work in the AM. -Type 2 diabetes mellitus jardiance held check accuchecks ACHS and continue sliding scale insulin. -Hypertension -Hyperlipidemia Above-mentioned chronic medical problems patient will be started on appropriate home medications DVT prophylaxis: Subcutaneous heparin Full Code Repeat blood work in the AM. Order incentive spirometer. Pending PT evaluation. The impression and plan of care has been dictated by Alysia Wetzel Nurse Practitioner as directed. Dr. Zaina MD I have performed a history and physical examination and medical decision making of this patient, discussed the same with the dictator, and agree with the dictators assessment and plan as written, documented as a scribe. Based on total visit time, I have performed more than 50% of this visit. Objective - Vital Signs Vital signs: Vital Signs Temp 98.6 F 12/29/23 07:28 Pulse 82 12/29/23 07:28 Resp 17 12/29/23 07:28 BP 156/89 12/29/23 07:28 Pulse Ox 98 12/29/23 07:28 FiO2 Intake & Output 12/28/23 12/29/23 12/29/23 18:59 06:59 18:59 Intake Total 1800 Balance 1800 Intake: Intake, IV Titration 1200 Amount Sodium Chloride 0.9% 1, 1200 000 ml @ 100 mls/hr IV . Q10H [facility] Rx#:[id number] Oral 600 Other: Voiding Method Bedside Commode Bedside Commode Diaper Diaper Incontinent # Voids 1 3 1 # Bowel Movements 1 - Labs CBC & Chem 7: 12/27/23 14:40 12/29/23 14:41 Labs: Abnormal Lab Results - Last 24 Hours (Table) 12/28/23 12/28/23 12/28/23 Range/Units 10:18 17:04 17:54 Sodium (137-145) mmol/L Potassium 2.8 L (3.5-5.1) mmol/L Chloride (98-107) mmol/L Creatinine (0.52-1.04) mg/dL Glucose (74-99) mg/dL POC Glucose (mg/dL) 126 H (70-110) mg/dL Calcium (8.4-10.2) mg/dL Magnesium (1.6-2.3) mg/dL PTH Intact 8.6 L (14.0-72.0) pg/mL 12/28/23 12/29/23 12/29/23 Range/Units 20:28 00:35 07:12 Sodium 146 H (137-145) mmol/L Potassium 2.8 L 3.3 L (3.5-5.1) mmol/L Chloride 114 H (98-107) mmol/L Creatinine 1.08 H (0.52-1.04) mg/dL Glucose 101 H (74-99) mg/dL POC Glucose (mg/dL) 115 H (70-110) mg/dL Calcium 11.5 H (8.4-10.2) mg/dL Magnesium (1.6-2.3) mg/dL PTH Intact (14.0-72.0) pg/mL 12/29/23 Range/Units 07:12 Sodium (137-145) mmol/L Potassium (3.5-5.1) mmol/L Chloride (98-107) mmol/L Creatinine (0.52-1.04) mg/dL Glucose (74-99) mg/dL POC Glucose (mg/dL) (70-110) mg/dL Calcium (8.4-10.2) mg/dL Magnesium 1.2 L (1.6-2.3) mg/dL PTH Intact (14.0-72.0) pg/mL Assessment and Plan Time with Patient: Less than 30
[2023-12-29] MEDS: hydrALAZINE HCL 25 MG TAB PO SCH (20:34)
[2023-12-29 20:51] LABS: Glucose,Whole Blood 153 mg/dL (70-110)
[2023-12-30] MEDS ORDERED: Potassium Replacement Protocol 1 EACH MISC MISCELLANE PRN (00:04)
[2023-12-30] MEDS: POTASSIUM CHLORIDE ER 20 MEQ TAB.ER PO SCH (00:17)
[2023-12-30] MEDS: ZINC OXIDE PASTE (Z-GUARD) 1 APPLIC TOPICAL PRN (02:44)
[2023-12-30 07:03] LABS: Glucose,Whole Blood 126 mg/dL (70-110)
[2023-12-30] MEDS ORDERED: hydrALAZINE HCL 20 MG/ML 1 ML VIAL IVP PRN (08:14)
--- NOTE | 2023-12-30 08:16 | P.PN ---
Subjective Patient is seen in follow-up for hypercalcemia. Calcium level trending down. On IV fluids. States she was taking a multivitamin with calcium and also calciumvitamin D supplement at home. Receiving IV fluids. Vital signs are stable. General: No acute distress. HEENT: Head exam is unremarkable. LUNGS: No audible rhonchi or wheezes. HEART: Rate and Rhythm are regular. ABDOMEN: Nontender. EXTREMITITES: No edema. Objective - Vital Signs Vital signs: Vital Signs Temp 98.5 F 12/30/23 07:01 Pulse 86 12/30/23 07:01 Resp 16 12/30/23 07:01 BP 163/98 12/30/23 07:01 Pulse Ox 97 12/30/23 07:01 FiO2 Intake & Output 12/29/23 12/30/23 12/30/23 18:59 06:59 18:59 Intake Total 1380 Balance 1380 Intake: Intake, IV Titration 900 Amount Dextrose 5% in Water 1, 900 000 ml @ 75 mls/hr IV . [id number] [facility] Rx#:[id number] Oral 480 Other: Voiding Method Bedside Commode Bedside Commode Diaper Diaper Incontinent Incontinent # Voids 1 2 - Labs CBC & Chem 7: 12/27/23 14:40 12/29/23 22:06 Labs: Abnormal Lab Results - Last 24 Hours (Table) 12/29/23 12/29/23 12/29/23 Range/Units 07:12 14:41 17:24 Potassium 3.4 L (3.5-5.1) mmol/L POC Glucose (mg/dL) 127 H (70-110) mg/dL Magnesium 1.2 L (1.6-2.3) mg/dL 12/29/23 12/30/23 Range/Units 20:49 07:02 Potassium (3.5-5.1) mmol/L POC Glucose (mg/dL) 153 H 126 H (70-110) mg/dL Magnesium (1.6-2.3) mg/dL Assessment and Plan Plan: Assessment: 1. Hypercalcemia. PTH appropriately suppressed. PTH 8. Vitamin D level 35. Calcium and vitamin D supplementation held. 2. Hypokalemia from hypercalcemia induced diuresis and hypomagnesemia. Was also on Jardiance outpatient. Renin and aldosterone pending. 3. Diabetes mellitus. 4. Elevated blood pressure. 5. Hypomagnesemia from hypercalcemia induced diuresis. Replaced. 6. Hypernatremia from lack of oral water intake. Plan: Maintain IV fluids. Currently receiving D5W. Change to half-normal saline. Follow-up renin and aldosterone levels. Follow-up calcitriol level, ISA and serum immunofixation. Add as needed hydralazine. Follow-up morning labs.
[2023-12-30 09:07] LABS: BUN/Creat Ratio 7.91 Ratio (12.00-20.00); Blood Urea Nitrogen 8.7 mg/dL (9.0-27.0); Calcium 10.7 mg/dL (8.7-10.3); Carbon Dioxide 23.3 mmol/L (21.6-31.8); Chloride 110 mmol/L (96-109); Glucose 133 mg/dL (70-110); Magnesium 1.8 mg/dL (1.5-2.4); Potassium 3.6 mmol/L (3.5-5.5); Sodium 143 mmol/L (135-145)
[2023-12-30] MEDS: SODIUM CHLORIDE 0.45% 1,000 ML IV SCH (11:11)
--- NOTE | 2023-12-30 11:41 | P.DS ---
Providers Date of admission: 12/27/23 17:48 Expected date of discharge: 12/30/23 Attending physician: Dwaine Barraza Consults: 12/28/23 10:03 Consult Physician Routine Consulting Provider: Nkechi Buchanan Consult Reason/Comments: Hypercalcemia Do you want consulting provider notified?: Yes Primary care physician: Dwaine Barraza [facility] Course: Final Diagnoses: Hypercalcemia, PTH 8.6, vitamin D 35. Current calcium 10.7 Hypokalemia secondary to the above and hypomagnesemia. Renin and aldosterone pending, follow-up outpatient. Jardiance remains on hold, as it can cause hypokalemia. Further recommendations outpatient in clinic at follow-up visit with PCP Status post fall with x-ray of bilateral knees reporting no acute osseous abnormalities, narrowing of medial and lateral compartment joint spaces- moderate degenerative changes. Diabetes mellitus II, hemoglobin A1c 6 Hypertension, hydralazine initiated twice daily, reevaluate in clinic for further recommendations. Hypernatremia, isolated event, resolved with increased oral water intake Hospital course: This a 53-year-old female admitted with generalized weakness, status post mechanical fall discovered to have hypercalcemia accompanied with severe hypomagnesemia and hypokalemia. Denies syncope. Denies nausea vomiting or diarrhea. Reports she was taking a multivitamin with calcium and also calcium/vitamin D supplement at home. Maintain on IV fluid hydration, potassium and magnesium supplemented. Current potassium 3.6, magnesium 1.8, additional supplements this morning ordered. Creatinine 1.1 ambulating, evaluated and cleared by PT, patient states she is at her baseline. Blood sugars controlled. Denies chest pain, palpitations or shortness of breath. Maintaining O2 sats in the high 90s on room air.Jardiance remains on hold, as it can cause hypokalemia. Further recommendations outpatient in clinic at follow-up visit with PCP. Significant clinical improvement. Patient will be discharged home today in a stable condition with guarded prognosis pending repeat blood pressure, final DC recommendations and clearance per nephrology. The impression and plan of care has been dictated as directed. : I performed a history and examination of this patient, discussed the same with the dictator. I agree with the dictator's note ,documented as a scribe. Any additional findings or plans will be noted. Patient Condition at Discharge: Stable Plan - Discharge Summary Discharge Rx Participant: No New Discharge Prescriptions: New hydrALAZINE HCL [Apresoline] 25 mg PO BID #30 tab Nystatin 100,000 Unit/gm Powd [Mycostatin Powder] 1 applic TOPICAL TID each Continue Levothyroxine Sodium 150 mcg PO DAILY@0500 metFORMIN HCL ER [Glucophage XR] 1,000 mg PO BID Atorvastatin [Lipitor] 10 mg PO HS Discontinued Empagliflozin [Jardiance] 10 mg PO W/[id number] Discharge Medication List Atorvastatin [Lipitor] 10 mg PO HS 12/05/21 [History] Levothyroxine Sodium 150 mcg PO DAILY@0500 12/05/21 [History] metFORMIN HCL ER [Glucophage XR] 1,000 mg PO BID 12/05/21 [History] Nystatin 100,000 Unit/gm Powd [Mycostatin Powder] 1 applic TOPICAL TID each 12/30/23 [Rx] hydrALAZINE HCL [Apresoline] 25 mg PO BID #30 tab 12/30/23 [Rx] Follow up Appointment(s)/Referral(s): Dwaine Barraza DO [Primary Care Provider] - 01/06/24 10:20 am (You will see Shabnam.) Ambulatory/Diagnostic Orders: Basic Metabolic Panel [LAB.AMB] Time Frame: 3 Days, Location: None Selected Patient Instructions/Handouts: Chronic Hypertension (DC), Hypercalcemia (DC), F all Prevention (DC)
[2023-12-30] MEDS: POTASSIUM CHLORIDE ER 20 MEQ TAB.ER PO STA (11:43)
[2023-12-30] MEDS: MAGNESIUM SULFATE-D5W PMX 1 GM in DEXTROSE/WATER 1 100ML.BAG IVPB ONE (11:43)
[2023-12-30 12:33] LABS: Glucose,Whole Blood 119 mg/dL (70-110)
[2023-12-30 13:32] VITALS: BP 149/77; PULSE 91; RESP 18; TEMP 98.2
--- NOTE | 2023-12-30 15:47 | P.CNPUL ---
History of Present Illness Consult date: 12/30/23 Requesting physician: Dwaine Barraza Chief complaint: Hypercalcemia. History of present illness: Pulmonary consult dated December 30, 2023. 53-year-old female who was seen in the emergency department, on December 26. The patient apparently came in with lower extremity injury, having fallen. The patient does have a history of diabetes, hyperlipidemia, and thyroid disease. I was consulted because her calcium was elevated, and the medical record transcriber was concerned about the possibility of sarcoidosis. I saw the patient today in room 519. She is on room air. No IV fluids. She tells me that she is going to be discharged home later today. I told her that the workup, could be an outpatient workup. She denies any pulmonary complaints including shortness of breath, cough, wheezing, chest tightness, or phlegm production. The patient has no history of any lung issues whatsoever. I told her she would likely need a CAT scan of the chest, some additional blood work, and a 24-hour urine collection for calcium. The patient is a lifelong non-smoker. Most recent labs include a white count 9.3, hemoglobin 11, hematocrit 33.5, and a platelet count of 239,000. Sodium is 143, potassium 3.6, chlorides 110, CO2 23, BUN 9, and crea tinine 1.1. The patient's glucose was 133. Her admission calcium was 13.9. The patient's most recent calcium was 10.7. The patient's angiotensin- converting enzyme level is elevated at 76. The patient's chest x-ray was normal. Review of Systems REVIEW OF SYSTEMS: CONSTITUTIONAL: Frequent falls. NEUROLOGIC: [ Negative.] HEENT: [ Negative.] CARDIAC: [Negative.] PULMONARY: [Negative.] GI: [Negative.] : [Negative.] RHEUMATOLOGIC: [ Negative.] IMMUNOLOGIC: [ Negative.] ENDOCRINE: [Negative. ] DERMATOLOGIC: [Negative.] Past Medical History Past Medical History: Diabetes Mellitus, Hyperlipidemia, Thyroid Disorder Additional Past Medical History / Comment(s): Hx frequent UTI's. Hemorrhoids. History of Any Multi-Drug Resistant Organisms: None Reported Past Surgical History: Breast Surgery, Cholecystectomy, Orthopedic Surgery Additional Past Surgical History / Comment(s): Colonoscopy, right breast biopsy/milk duct removed, arthroscopic left knee surgery X2. Past Anesthesia/Blood Transfusion Reactions: No Reported Reaction Past Psychological History: No Psychological Hx Reported Smoking Status: Never smoker Past Alcohol Use History: None Reported Past Drug Use History: None Reported - Past Family History Mother Family Medical History: No Reported History Medications and Allergies Home Medications Medication Instructions Recorded Confirmed Type Atorvastatin [Lipitor] 10 mg PO HS 12/05/21 12/27/23 History Levothyroxine Sodium 150 mcg PO DAILY@0500 12/05/21 12/27/23 History metFORMIN HCL ER [Glucophage XR] 1,000 mg PO BID 12/05/21 12/27/23 History Nystatin 100,000 Unit/gm Powd 1 applic TOPICAL TID each 12/30/23 Rx [Mycostatin Powder] hydrALAZINE HCL [Apresoline] 25 mg PO BID #30 tab 12/30/23 Rx Allergies Allergy/AdvReac Type Severity Reaction Status Date / Time No Known Allergies Allergy Verified 12/27/23 14:54 Physical Exam Osteopathic Statement: *. No significant issues noted on an osteopathic structural exam other than those noted in the History and Physical/Consult. Vitals: Vital Signs Temp Pulse Resp BP BP Pulse Ox 12/30/23 12:31 98.2 F 91 18 149/77 100 12/30/23 11:55 138/87 12/30/23 07:01 98.5 F 86 16 163/98 97 12/30/23 01:06 98.2 F 98 16 157/102 98 12/29/23 19:06 98 F 104 H 16 157/91 100 12/29/23 17:55 147/90 Intake and Output 12/30/23 12/30/23 12/30/23 06:59 14:59 22:59 Intake Total 1020 Balance 1020 Intake: Intake, IV Titration 900 Amount Dextrose 5% in Water 1, 900 000 ml @ 75 mls/hr IV . [id number] [facility] Rx#:[id number] Oral 120 Other: Voiding Method Bedside Commode Diaper Incontinent # Voids 2 2 No acute distress, oriented 3. Currently on room air. HEENT examination is grossly unremarkable. Mucous membranes are moist. No oral lesions. Neck supple. Full range of motion. No adenopathy thyromegaly or neck vein distention. Cardiovascular examination reveals regular rhythm rate. S1-S2 normal. No S3 or S4. No discernible murmur noted. Heart rate 91 bpm. Lungs reveal clear breath sounds. Breath sounds are equal bilaterally. No adventitious lung sounds including wheezes rhonchi or crackles. Room air saturation is 100%. Abdomen soft bowel sounds are heard. No masses or tenderness. Extremities are intact. No cyanosis clubbing or edema. Skin is without rash or lesion. Neurologic examination is brief but nonfocal. Results - Laboratory Findings CBC and BMP: 12/27/23 14:40 12/30/23 04:49 Abnormal lab findings: Abnormal Labs 12/27/23 12/27/23 12/27/23 14:40 14:40 22:13 Hgb 11.0 L Hct 33.5 L RDW 16.4 H Sodium Potassium 3.0 L Chloride BUN Creatinine 1.16 H BUN/Creatinine Ratio Glucose 112 H POC Glucose (mg/dL) 113 H Calcium 13.9 H* Magnesium Angiotensin Convert Enz PTH Intact 12/28/23 12/28/23 12/28/23 10:18 10:18 17:04 Hgb Hct RDW Sodium Potassium 2.4 L* Chloride BUN Creatinine 1.17 H BUN/Creatinine Ratio Glucose 134 H POC Glucose (mg/dL) 126 H Calcium 12.3 H Magnesium 1.1 L Angiotensin Convert Enz PTH Intact 8.6 L 12/28/23 12/28/23 12/29/23 17:54 20:28 00:35 Hgb Hct RDW Sodium Potassium 2.8 L 2.8 L Chloride BUN Creatinine BUN/Creatinine Ratio Glucose POC Glucose (mg/dL) 115 H Calcium Magnesium Angiotensin Convert Enz PTH Intact 12/29/23 12/29/23 12/29/23 07:12 07:12 07:12 Hgb Hct RDW Sodium 146 H Potassium 3.3 L Chloride 114 H BUN Creatinine 1.08 H BUN/Creatinine Ratio Glucose 101 H POC Glucose (mg/dL) Calcium 11.5 H Magnesium 1.2 L Angiotensin Convert Enz 76 H PTH Intact 12/29/23 12/29/23 12/29/23 14:41 17:24 20:49 Hgb Hct RDW Sodium Potassium 3.4 L Chloride BUN Creatinine BUN/Creatinine Ratio Glucose POC Glucose (mg/dL) 127 H 153 H Calcium Magnesium Angiotensin Convert Enz PTH Intact 12/30/23 12/30/23 12/30/23 04:49 07:02 12:31 Hgb Hct RDW Sodium Potassium Chloride 110 H BUN 8.7 L Creatinine BUN/Creatinine Ratio 7.91 L Glucose 133 H POC Glucose (mg/dL) 126 H 119 H Calcium 10.7 H Magnesium Angiotensin Convert Enz PTH Intact - Diagnostic Findings Chest x-ray: image reviewed Assessment and Plan Assessment: Hypercalcemia, in a patient with an elevated angiotensin-converting enzyme level, rule out sarcoidosis. History of diabetes mellitus. History of hyperlipidemia. History of hypothyroidism. Plan: Plan dated December 30, 2023. The patient is seen today in room 519. She is being discharged home later today. The patient will see me in the office for follow-up. I told her she will need a CT scan of the chest, a sedimentation rate, C-reactive protein, and, a 24-hour urine collection for calcium. Her serum calcium was elevated. Her angiotensin-converting enzyme level was elevated at 76. Sarcoidosis is certainly a possibility. The patient is currently not having any pulmonary complaints. She is a lifelong non-smoker. Additional recommendations and suggestions are forthcoming Time with Patient: Greater than 30
[2023-12-30 17:34] LABS: Glucose,Whole Blood 108 mg/dL (70-110)
== END 2023-12-30 18:00 | disposition home or self-care (01) | DRG 641 ==
LOC: EC 14:04 → 5NMEDONC 17:48
PROVIDERS: ADMIT Family Medicine; ATTEND Family Medicine
DX: E83.52 Hypercalcemia (principal); E87.0 Hyperosmolality and hypernatremia; E03.9 Hypothyroidism, unspecified; I10 Essential (primary) hypertension; E11.9 Type 2 diabetes mellitus without complications; E78.5 Hyperlipidemia, unspecified; E83.42 Hypomagnesemia; M17.0 Bilateral primary osteoarthritis of knee; S80.01XA Contusion of right knee, initial encounter; S80.02XA Contusion of left knee, initial encounter; E87.6 Hypokalemia; R29.6 Repeated falls; W01.0XXA Fall on same level from slipping, tripping and stumbling without subsequent striking against object, initial encounter; Z91.81 History of falling; Z79.84 Long term (current) use of oral hypoglycemic drugs; Z79.890 Hormone replacement therapy; Z79.899 Other long term (current) drug therapy
CPT/HCPCS: 36415; 71046; 80048; 82088; 82164; 82306; 82652; 83036; 83735; 83970; 84132; 84244; 85025; 86334; 86335; 93005; 96361; 96374; 99285

== ENCOUNTER → 2024-01-02 | Outpatient (CLI) | payer BC ==
[2024-01-02 16:17] LABS: ALT 15 U/L (8-44); AST 23 U/L (13-35); Albumin 3.9 g/dL (3.8-4.9); Albumin/Globulin Ratio 0.91 Ratio (1.60-3.17); Alkaline Phosphatase 79 U/L (41-126); Blood Urea Nitrogen 9.4 mg/dL (9.0-27.0); Calcium 10.3 mg/dL (8.7-10.3); Carbon Dioxide 19.4 mmol/L (21.6-31.8); Chloride 104 mmol/L (96-109); Globulin 4.3 g/dL (1.6-3.3); Glucose 160 mg/dL (70-110); Magnesium 1.4 mg/dL (1.5-2.4); Sodium 140 mmol/L (135-145); Total Bilirubin 0.7 mg/dL (0.3-1.2); Total Protein 8.2 g/dL (6.2-8.2)
== END | disposition home or self-care (01) ==
LOC: LABWHC1 10:09
PROVIDERS: ATTEND Family Medicine
DX: I10 Essential (primary) hypertension (principal); E83.42 Hypomagnesemia; E83.52 Hypercalcemia; E87.0 Hyperosmolality and hypernatremia; E87.6 Hypokalemia
CPT/HCPCS: 36415; 80053; 83735

== ENCOUNTER → 2024-01-13 | Outpatient (CLI) | payer BC ==
[2024-01-13 14:46] LABS: ALT 14 U/L (8-44); AST 16 U/L (13-35); Albumin 4.1 g/dL (3.8-4.9); Albumin/Globulin Ratio 0.95 Ratio (1.60-3.17); Alkaline Phosphatase 97 U/L (41-126); BUN/Creat Ratio 9.75 Ratio (12.00-20.00); Blood Urea Nitrogen 7.8 mg/dL (9.0-27.0); Calcium 12.7 mg/dL (8.7-10.3); Carbon Dioxide 22.3 mmol/L (21.6-31.8); Chloride 99 mmol/L (96-109); Globulin 4.3 g/dL (1.6-3.3); Glucose 144 mg/dL (70-110); Potassium 2.7 mmol/L (3.5-5.5); Sodium 137 mmol/L (135-145); Total Bilirubin 0.7 mg/dL (0.3-1.2); Total Protein 8.4 g/dL (6.2-8.2)
== END | disposition home or self-care (01) ==
LOC: LABWHC1 10:52
PROVIDERS: ATTEND Internal Medicine Critical Care Medicine
DX: Z01.818 Encounter for other preprocedural examination (principal); D86.9 Sarcoidosis, unspecified
CPT/HCPCS: 36415; 80053; 82164; 85652; 86140

== ENCOUNTER → 2024-01-23 | Outpatient (CLI) | payer BC ==
[2024-01-23 11:36] LABS: African American GFR (CKD) >90 (>60 ml/min/1.73 sqM); Blood Urea Nitrogen 9 mg/dL (7-17); Non-African American GFR(CKD) >90 (>60 ml/min/1.73 sqM)
--- NOTE | 2024-01-23 13:03 | CT ---
EXAMINATION TYPE: CT chest w con DATE OF EXAM: 01/23/2024 COMPARISON: Radiographs 6-24 HISTORY: 53-year-old female D86.9, unspecified sarcoidosis, multiple recent falls TECHNIQUE: Contiguous axial scanning of the chest after the administration of 100 mL of Isovue 300. Coronal/sagittal reconstructions performed. CT DLP: 693mGycm. Automatic exposure control utilized for a dose reduction. FINDINGS: Heart upper limits of normal in size without pericardial effusion. Aorta normal caliber with conventional arch vessel branching anatomy. Upper right paratracheal node 1.1 cm. Lower right paratracheal node 1.4 cm. Subcarinal node 1.5 cm. Hazy atelectasis in the lower lungs. Suggestion of some as a continuation in the upper mid lungs. No alcon perilymphatic nodularity or cystic changes identified. A couple pulmonary nodules on the right measuring 6 mm at the midline, axial image 23 and 3 mm at the anterior right upper lobe, axial image 20. Visualized upper abdomen shows splenomegaly up to at least 18.1 cm. Innumerable hypodense lesions are present throughout measuring up to 2.2 cm. Suggestion of innumerable tiny hypodense lesions througho ut the liver as well. Cholecystectomy clips. Bones: Asymmetric degenerative change right sternoclavicular joint. Incidental os acromiale he on the right. No osseous destructive process. IMPRESSION: 1. A few mildly enlarged right paratracheal and subcarinal nodes measuring up to 1.5 cm may be due to the patient's reported sarcoidosis. 6 month follow-up to ensure stability. 2. No alcon or lymphatic nodularity, fibrosis, or cystic change of the lungs. There is mosaic attenua tion suggesting small airways disease and a couple pulmonary nodules on the right measuring up to 6 m m. These should also be reassessed at this patient's 6 month follow-up. 3. However, there is alcon splenomegaly up to 18.1 cm and innumerable tiny round hypodense lesions wi thin both liver and spleen. Granulomatous infections including fungal and sarcoid, lymphoma, and less likely metastases are some differential considerations. Further workup recommended.
== END | disposition home or self-care (01) ==
LOC: RADCTMAIN 10:38
PROVIDERS: ATTEND Internal Medicine Critical Care Medicine
DX: D86.9 Sarcoidosis, unspecified (principal); R29.6 Repeated falls; R16.1 Splenomegaly, not elsewhere classified
CPT/HCPCS: 82565; 84520; 71260; 36415; Q9967

== ENCOUNTER → 2024-02-11 | Day surgery (SDC) | payer BC ==
[2024-02-05 11:25] VITALS: BMI 34.7
[~2024-02-11] MED LIST changes: +DEXAMETHASONE SOD PHOSPHATE 4 MG/ML 1 ML VIAL IV ONE; +DEXAMETHASONE SOD PHOSPHATE 4 MG/ML 1 ML VIAL ONE; +GLYCOPYRROLATE 0.2 MG/ML 2 ML VIAL ONE; +HYDROmorphone 0.5 MG/0.5 ML SYRINGE IVP PRN; +LIDOCAINE 1% INJ 10MG/ML (20 ML MDV) ONE; +MIDAZOLAM 2 MG/2 ML VIAL IV PRN; +ONDANSETRON 4 MG/2 ML VIAL IVP ONE; +ONDANSETRON 4 MG/2 ML VIAL ONE; +PROPOFOL 10 MG/ML 20 ML VIAL IV ONE; +SUCCINYLCHOLINE CHLORIDE 200 MG/10 ML VIAL IV ONE; +fentaNYL (PF) 50 MCG/ML 2 ML AMP ONE
[2024-02-11] MEDS: LACTATED RINGERS 1,000 ML IV SCH (12:50)
[2024-02-11] MEDS: LIDOCAINE 1% (10MG/ML) FOR IV START INTRADERMA PRN (12:50)
[2024-02-11] MEDS: IV FLUID CONTINUATION 1,000 ML IV ONE (12:50)
[2024-02-11 13:07] LABS: Glucose,Whole Blood 162 mg/dL (70-110)
[2024-02-11 14:24] VITALS: TEMP 97.9
--- NOTE | 2024-02-11 15:04 | XR ---
EXAMINATION TYPE: XR chest 1V portable DATE OF EXAM: 02/11/2024 COMPARISON: Asked to 24 INDICATION: Post bronchoscopy TECHNIQUE: Single frontal view of the chest is obtained. FINDINGS: The heart size is normal. The pulmonary vasculature is normal. Mild infiltrates in the right lower lobe. No pneumothorax is seen. IMPRESSION: 1. Mild right lower lobe infiltrate. Correlate for atelectasis or pneumonia.
[2024-02-11 15:28] VITALS: RESP 14
[2024-02-11 16:07] LABS: Glucose,Whole Blood 178 mg/dL (70-110)
[2024-02-11 16:22] VITALS: BP 133/87; PULSE 95
--- NOTE | 2024-02-11 21:18 | PCN ---
PROCEDURE NOTE PROCEDURES PERFORMED: Bronchoscopy, airway examination, therapeutic lavage, BAL right lower lobe, transbronchial and endobronchial biopsies right lower lobe. PREOPERATIVE DIAGNOSIS: Rule out sarcoidosis. POSTOPERATIVE DIAGNOSIS: Rule out sarcoidosis. The patient's procedure was done in room #1 endoscopy center. ANESTHESIA: Provided general endotracheal anesthesia. There was informed consent and universal timeout. SIMULATION SOFTWARE ENGINEER: Dr. Win. FIRST SERVER SUPPORT TECHNICIAN: Dr. Michelle Vo. DESCRIPTION OF PROCEDURE: After the patient was adequately under the effects of general anesthesia, the bronchoscope was inserted through the bronchoscope adapter, connected to the endotracheal tube. We did a thorough evaluation of both lungs. The right upper lobe and its 3 segments, right middle lobe and its 2 segments, right lower lobe and its 4 segments, missing a medial bronchopulmonary segment of the right lower lobe, the left upper lobe proper and its 2 segments, the lingula and its 2 segments and left lower lobe and its 4 segments, were all normal. There were no endobronchial masses or tumor. There was no airway inflammation. Next, we did multiple endobronchial and transbronchial biopsies under fluoroscopic guidance to the right lower lobe. There was no significant bleeding. At least 9 biopsy pieces were obtained. Subsequent to that, we did a formal BAL in the right lower lobe. The patient tolerated the procedure well. There was no obvious pneumothorax. Chest x-ray was ordered. The fluid and the biopsy were sent to the laboratory for analysis. There was no immediate complication. MMODL / IJN: [id number] /
--- NOTE | 2024-02-11 21:31 | FL ---
Fluoroscopy INDICATION: Pain FINDINGS: Fluoroscopy time: 25.3 seconds. Total dose area product (DAP) in uGy*m?, mGy*cm? (or similar): 1.2747 Images obtained: 2. IMPRESSION: 1. Documentation of fluoroscopy.
[2024-02-12 04:32] LABS: Appearance,BF Blood Tinged (Clear); RBC, Body Fluid 4688 /UL (0-2000)
[2024-02-12 09:37] LABS: Nucleated Cells, Body Fluid 13 /UL
== END | disposition home or self-care (01) ==
LOC: ORWHC2ENDO 11:29
PROVIDERS: ATTEND Internal Medicine Critical Care Medicine
DX: J98.4 Other disorders of lung (principal); E11.69 Type 2 diabetes mellitus with other specified complication; E78.5 Hyperlipidemia, unspecified; E03.9 Hypothyroidism, unspecified; I10 Essential (primary) hypertension; K21.9 Gastro-esophageal reflux disease without esophagitis; Z79.52 Long term (current) use of systemic steroids; Z79.890 Hormone replacement therapy; Z79.899 Other long term (current) drug therapy; Z79.84 Long term (current) use of oral hypoglycemic drugs
CPT/HCPCS: 88108; 88305; 89050; 87070; 87205; 87116; 87102; 87206; 71045; 31628; 31624; J0330; J1100; J2405; J2001; J3010; J2704; J1596; 87496; 87498; 87502; 87529; 87634; 87635; 87798

== ENCOUNTER → 2024-02-13 | Outpatient (CLI) | payer BC ==
--- NOTE | 2024-02-16 14:14 | MM ---
Reason for Exam: Screening (asymptomatic). Last screening mammogram was performed 12 month(s) ago. Patient History: Menarche at age 17. Patient has no children. Postmenopausal. Patient used Progesterone for 2 years. Patient used Hormonal Contraceptives for 4 years. 02/12/2001, Benign Excisional Biopsy on the right side. Maternal grandmother had breast cancer, age 50. Paternal aunt had breast cancer, age 50. Maternal aunt had breast cancer, age 50. Risk Values: Diana 5 year model risk: 1.3%. NCI Lifetime model risk: 10.3%. Prior Study Comparison: 02/08/2022 Right MG 3D work up w/cad RT, [facility]. 08/13/2022 Right MG 3D diag mammo w/cad RT, [facility]. 02/11/2023 Bilateral MG 3D diag mammo w/cad [place], [facility]. Tissue Density: There are scattered areas of fibroglandular density. Findings: Analyzed By CAD. The pattern is symmetrical. A few scattered benign punctate calcifications are scattered bilaterally. There may be a new mild focal asymmetry in the upper outer right breast. Additional evaluation with compression views recommended. Left breast:No suspicious groups of microcalcifications, spiculated or lobular masses, architectural distortion or other secondary signs of malignancy are mammographically apparent. Overall Assessment: Incomplete: need additional imaging evaluation, BI-RAD 0 Management: Diagnostic Mammogram of the right breast. A negative mammogram report should not preclude additional follow up of suspicious palpable abnormalities. Patient should continue monthly self breast exam. A clinical breast exam by your physician is recommended on an annual basis and results should be correlated with mammographic findings. Note on Diana scores and lifetime risk: 1. A Diana score greater than 3% is considered moderate risk. If this is the case, consider specialist referral to assess eligibility for a risk reducing agent. 2. If overall lifetime risk for the development of breast cancer is 20% or higher, the patient may qualify for future screening with alternating mammogram and breast MRI. Electronically signed and approved by: Tariq Chase D.O. Radiologis
== END | disposition home or self-care (01) ==
LOC: RADMAMWWP 09:17
PROVIDERS: ATTEND Obstetrics & Gynecology
DX: Z12.31 Encounter for screening mammogram for malignant neoplasm of breast (principal); R92.323 Mammographic fibroglandular density, bilateral breasts; Z78.0 Asymptomatic menopausal state; Z80.3 Family history of malignant neoplasm of breast
CPT/HCPCS: 77067

== ENCOUNTER → 2024-02-18 | Outpatient (CLI) | payer BC ==
--- NOTE | 2024-02-18 10:31 | MM ---
Reason for Exam: Additional evaluation requested from abnormal screening. Last screening mammogram was performed less than 1 month ago. Patient History: Menarche at age 17. Patient has no children. Postmenopausal. Patient used Progesterone for 2 years. Patient used Hormonal Contraceptives for 4 years. 02/12/2001, Benign Excisional Biopsy on the right side. Maternal grandmother had breast cancer, age 50. Paternal aunt had breast cancer, age 50. Maternal aunt had breast cancer, age 50. Risk Values: Diana 5 year model risk: 1.3%. NCI Lifetime model risk: 10.3%. Tissue Density: Right: There are scattered areas of fibroglandular density. Findings: Analyzed By CAD. Asymmetric density is less conspicuous on additional spot compression images. Precautionary six-month follow-up is recommended. Overall Assessment: Probably benign, BI-RAD 3 Management: Diagnostic Mammogram of the right breast in 6 months. . Results were given to the patient verbally at the time of exam. Patient should continue monthly self-breast exams. A clinical breast exam by your physician is recommended on an annual basis. This exam should not preclude additional follow-up of suspicious palpable abnormalities. Note on Diana scores and lifetime risk: 1. A Diana score greater than 3% is considered moderate risk. If this is the case, consider specialist referral to assess eligibility for a risk reducing agent. 2. If overall lifetime risk for the development of breast cancer is 20% or higher, the patient may qualify for future screening with alternating mammogram and breast MRI. Electronically signed and approved by: Nathan Shanks M.D. Radiologis
== END | disposition home or self-care (01) ==
LOC: RADMAMWWP 09:36
PROVIDERS: ATTEND Obstetrics & Gynecology
DX: R92.321 Mammographic fibroglandular density, right breast (principal); R92.8 Other abnormal and inconclusive findings on diagnostic imaging of breast; Z78.0 Asymptomatic menopausal state; Z80.3 Family history of malignant neoplasm of breast
CPT/HCPCS: 77061; 77065

== ENCOUNTER → 2024-07-09 | Outpatient (CLI) | payer BC ==
[2024-07-09 10:49] LABS: African American GFR (CKD) >90 (>60 ml/min/1.73 sqM); Blood Urea Nitrogen 9 mg/dL (7-17); Non-African American GFR(CKD) >90 (>60 ml/min/1.73 sqM)
--- NOTE | 2024-07-09 11:55 | CT ---
CT chest with contrast HISTORY: Sarcoidosis COMPARISON: 01/23/2024 TECHNIQUE: Multiple axial images are obtained through the thorax following the uneventful administrat ion nonionic IV contrast. FINDINGS: There are 3 stable small sub-6 mm pulmonary nodules, 2 on the right and one on the left. There is no new or suspicious lung mass or nodule. There is no airspace consolidation. There is no abnormal interstitial density. There is no bronchiect asis or honeycombing. There is no pleural effusion or pneumothorax. Heart and pulmonary vasculature are normal. There is no mediastinal, hilar or axillary adenopathy. Th e right paratracheal lymph nodes that were enlarged on the prior study are not pathologically enlarge d based on CT criteria. Limited scanning through the upper abdomen reveals cholecystectomy and splenic enlargement measuring 16 cm. It slightly less prominent than on the prior study where it measured 18 cm. No focal osseous lesions are seen. IMPRESSION: 1. No acute cardiopulmonary disease. 2. 3 stable multiple pulmonary nodules. 3. No mediastinal or hilar lymphadenopathy. 4. Mild splenomegaly, decreased compared to the prior study as described above. [facility], , 07/09/2024 11:53 AM
== END | disposition home or self-care (01) ==
LOC: RADCTMAIN 10:04
PROVIDERS: ATTEND Internal Medicine Critical Care Medicine
DX: D86.9 Sarcoidosis, unspecified (principal); R91.8 Other nonspecific abnormal finding of lung field; R16.1 Splenomegaly, not elsewhere classified
CPT/HCPCS: 82565; 84520; 71260; 36415; Q9967

== ENCOUNTER → 2024-08-25 | Outpatient (CLI) | payer BC ==
--- NOTE | 2024-08-25 10:54 | MM ---
Reason for Exam: Follow-up at short interval from prior study. Last screening mammogram was performed 6 month(s) ago. Patient History: Menarche at age 17. Patient has no children. Postmenopausal. Patient used Progesterone for 2 years. Patient used Hormonal Contraceptives for 4 years. 02/12/2001, Benign Excisional Biopsy on the right side. Maternal grandmother had breast cancer, age 50. Paternal aunt had breast cancer, age 50. Maternal aunt had breast cancer, age 50. Risk Values: Diana 5 year model risk: 1.3%. NCI Lifetime model risk: 10.1%. Prior Study Comparison: 02/11/2023 Bilateral MG 3D diag mammo w/cad [place], [facility]. 02/13/2024 Bilateral MG screening mammo w CAD, [facility]. 02/18/2024 Right MG 3D work up w/cad RT, [facility]. Tissue Density: Right: The breasts are almost entirely fatty. Findings: Analyzed By CAD. Area of concern/asymmetry compresses out on spot compression imaging. No suspicious masses, calcifications or distortions. Overall Assessment: Benign, BI-RAD 2 Management: Screening Mammogram of both breasts in 1 year. Results were given to the patient verbally at the time of exam. Patient should continue monthly self-breast exams. A clinical breast exam by your physician is recommended on an annual basis. This exam should not preclude additional follow-up of suspicious palpable abnormalities. Note on Diana scores and lifetime risk: 1. A Diana score greater than 3% is considered moderate risk. If this is the case, consider specialist referral to assess eligibility for a risk reducing agent. 2. If overall lifetime risk for the development of breast cancer is 20% or higher, the patient may qualify for future screening with alternating mammogram and breast MRI. [facility], , 08/25/2024 10:51 AM. Electronically signed and approved by: Nikunj Norman DO
== END | disposition home or self-care (01) ==
LOC: RADMAMWWP 10:29
PROVIDERS: ATTEND Obstetrics & Gynecology
DX: R92.2 Inconclusive mammogram (principal); R92.8 Other abnormal and inconclusive findings on diagnostic imaging of breast; R92.313 Mammographic fatty tissue density, bilateral breasts; Z78.0 Asymptomatic menopausal state; Z80.3 Family history of malignant neoplasm of breast; Z92.0 Personal history of contraception
CPT/HCPCS: 77061; 77065

== ENCOUNTER → 2025-02-15 | Outpatient (CLI) | payer BC ==
--- NOTE | 2025-02-15 09:23 | MM ---
Reason for Exam: Screening (asymptomatic). Last screening mammogram was performed 12 month(s) ago. Patient History: Menarche at age 17. Patient has no children. Postmenopausal. Patient used Progesterone for 2 years. Patient used Hormonal Contraceptives for 4 years. 02/12/2001, Benign Excisional Biopsy on the right side. Maternal grandmother had breast cancer, age 50. Paternal aunt had breast cancer, age 50. Maternal aunt had breast cancer, age 50. Risk Values: Diana 5 year model risk: 1.3%. NCI Lifetime model risk: 10.1%. Prior Study Comparison: 02/13/2024 Bilateral MG screening mammo w CAD, [facility]. 02/18/2024 Right MG 3D work up w/cad RT, [facility]. 08/25/2024 Right MG 3D diag mammo w/cad RT, [facility]. Tissue Density: The breasts are almost entirely fatty. Findings: Analyzed By CAD. Right breast: There is no suspicious group of microcalcifications or new suspicious mass. Left breast: There is no suspicious group of microcalcifications or new suspicious mass. Overall Assessment: Negative, BI-RAD 1 Management: Screening Mammogram of both breasts in [address] [facility] will attempt to contact patient to return for supplemental views and ultrasound if indicated. Patient should continue monthly self-breast exams. A clinical breast exam by your physician is recommended on an annual basis. This exam should not preclude additional follow-up of suspicious palpable abnormalities. Note on Diana scores and lifetime risk: 1. A Diana score greater than 3% is considered moderate risk. If this is the case, consider specialist referral to assess eligibility for a risk reducing agent. 2. If overall lifetime risk for the development of breast cancer is 20% or higher, the patient may qualify for future screening with alternating mammogram and breast MRI. [facility], , 02/15/2025 9:20 AM. Electronically signed and approved by: Nikunj Norman DO
== END | disposition home or self-care (01) ==
LOC: RADMAMWWP 07:04
PROVIDERS: ATTEND Obstetrics & Gynecology
DX: Z12.31 Encounter for screening mammogram for malignant neoplasm of breast (principal); R92.313 Mammographic fatty tissue density, bilateral breasts; Z78.0 Asymptomatic menopausal state; Z80.3 Family history of malignant neoplasm of breast; Z92.0 Personal history of contraception
CPT/HCPCS: 77063; 77067